=== PATIENT | female | born 1990 | race Two or more races ===

== ENCOUNTER 2018-12-30 22:26 | Emergency (ER) | payer OTHER ==
[~2018-12-30] VITALS: Ht 165.1 cm; Wt 83.5 kg
[2018-12-30 23:06] VITALS: BP 133/69
== END 2018-12-30 23:51 | disposition home or self-care (01) ==
LOC: ER 22:38
DX: B07.9 Viral wart, unspecified (principal); Z98.890 Other specified postprocedural states